=== PATIENT | female | born 1960 | race Caucasian/White ===

== ENCOUNTER 2019-05-05 11:19 | Outpatient (CLI) | payer BC, SELFPAY ==
--- NOTE | 2019-05-05 11:33 | CT_ITS ---
WS: [id number] CT scan of the abdomen with Oral and without IV contrast. Additional two-dimensional coronal and sagi ttal reconstruction was performed. 05/05/2019 Clinical Data: ABDOMINAL PAIN, UMBILICAL HERNIA WITHOUT OBSTRUCTION Comparison: None. DLP: 840.[address] scans at [facility] use at least one of these dose optimization techniques: automat ed exposure control; mA and/or kV adjustment per patient size (includes targeted exams where dose is matched to clinical indication); or iterative reconstruction. Findings: The lower lungs show no nodules, masses or effusions. The liver, spleen, adrenal glands and pancreas are normal. There are clips in the gallbladder fossa f rom a cholecystectomy. The kidneys show no cysts, masses, hydronephrosis, or renal calculi. The abdom inal aorta is normal in size. No appendicitis or diverticulitis is seen. Oral contrast is in the stomach and small bowel and there is no bowel dilatation. No abscess, adenopathy, ascites, mass, obstruction or free air is seen. There is a small bulge of the peritoneum on axial view 50 of 62 but there is no distinct umbilical hernia. There is minimal degenerative change of the lumbar vertebral bodies. CT/CT abdomen wo con [id number] Impression: 1. Cholecystectomy. 2. Negative for acute intra-abdominal or pelvic abnormalities. 3. Small anterior ventral peritoneal wall bulge but no large umbilical hernia i s seen.
== END 2019-05-05 11:20 | disposition home or self-care (01) ==
PROVIDERS: PCP Family Medicine; Visit Provider Family Medicine
DX: R10.9 Unspecified abdominal pain (principal); K42.9 Umbilical hernia without obstruction or gangrene
CPT/HCPCS: 74150